=== PATIENT | female | born 1960 | race Caucasian/White ===

== ENCOUNTER 2016-11-21 09:33 | Emergency (ER) | payer BC ==
[2016-11-21 10:01] VITALS: BP 129/59
--- NOTE | 2016-11-21 10:20 | UC ---
Throat Pain/Nasal Keanu HPI - HPI Summary HPI Summary: 3 days of feeling run down some sore throat no fever---has been going on for 3 days - History of Current Complaint Chief Complaint: UCRespiratory Stated Complaint: THROAT COMPLAINT Time Seen by Provider: 11/21/16 09:45 Hx Obtained From: Patient Hx Last Menstrual Period: 10/30/14 ?: No Onset/Duration: Sudden Onset, Lasting Days - 3 Severity: Moderate Pain Intensity: 5 Pain Scale Used: 0-10 Numeric Cough: None Associated Signs & Symptoms: Positive: Nasal Discharge - Allergies/Home Medications Allergies/Adverse Reactions: Allergies Allergy/AdvReac Type Severity Reaction Status Date / Time Amoxicillin [From Augmentin] Allergy Intermediate Rash Verified 02/07/16 17:09 Clavulanic Acid Allergy Intermediate Rash Verified 02/07/16 17:09 [From Augmentin] PMH/Surg Hx/FS Hx/Imm Hx Previously Healthy: No Endocrine History Of: Reports: Thyroid Disease - multinodular goiter Denies: Diabetes, Hypothyroidism Cardiovascular History Of: Denies: Cardiac Disorders, Hypertension, Pacemaker/ICD Respiratory History Of: Denies: COPD, Asthma GI/ History Of: Denies: Ulcer, Renal Disease - Surgical History Surgical History: Yes Surgery Procedure, Year, and Place: partial thyroidectomy - - Family History Known Family History: Positive: Diabetes - mother, Other - osteoarthritis-- mother - Social History Occupation: Employed Full-time - teacher Lives: With Family Alcohol Use: Occasionally Substance Use Type: None Smoking Status (MU): Never Smoked Tobacco Review of Systems Constitutional: Fatigue Skin: Negative Eyes: Negative ENT: Sore Throat, Nasal Discharge Respiratory: Negative Cardiovascular: Negative Gastrointestinal: Negative Genitourinary: Negative Motor: Negative Neurovascular: Negative Musculoskeletal: Negative Neurological: Negative Psychological: Negative All Other Systems Reviewed And Are Negative: Yes Physical Exam Triage Information Reviewed: Yes Appearance: Well-Appearing, No Pain Distress, Well-Nourished Vital Signs: Initial Vital Signs Temp 98.8 F 11/21/16 09:39 Pulse 72 11/21/16 09:39 Resp 18 11/21/16 09:39 BP 129/59 11/21/16 09:39 Pulse Ox 99 11/21/16 09:39 Vital Signs Reviewed: Yes Eye Exam: Normal Eyes: Positive: Conjunctiva Clear ENT Exam: Normal ENT: Positive: Normal ENT inspection, Hearing grossly normal, Pharynx normal, Nasal drainage, TMs normal. Negative: Nasal congestion, Tonsillar swelling, Tonsillar exudate, Trismus, Muffled/hoarse voice Dental Exam: Normal Neck exam: Normal Neck: Positive: Supple, Nontender, Enlarged Nodes @ - slight fullness Respiratory Exam: Normal Respiratory: Positive: Chest non-tender, Lungs clear, Normal breath sounds, No respiratory distress, No accessory muscle use Cardiovascular Exam: Normal Cardiovascular: Positive: RRR, No Murmur, Pulses Normal, Brisk Capillary Refill Musculoskeletal Exam: Normal Musculoskeletal: Positive: Strength Intact, ROM Intact, No Edema Neurological Exam: Normal Neurological: Positive: Alert, Muscle Tone Normal Psychological Exam: Normal Skin Exam: Normal Diagnostics - Laboratory Diagnostic Studies Completed/Ordered: RST (-) Throat Pain/Nasal Course/Dx - Course Assessment/Plan: Zyrtec D flonase increase fluids, follow with pcp - Differential Dx/Diagnosis Differential Diagnosis/HQI/PQRI: Laryngitis, Otitis Media, Pharyngitis, Sinusitis, URI Provider Diagnoses: allergic rhinitis, pharyngitis Discharge - Discharge Plan Condition: Stable Disposition: HOME Prescriptions: Ciprofloxacin HCl [Cipro 500 MG TAB] 500 mg PO BID #14 tab Patient Education Materials: Pharyngitis (ED), Allergic Rhinitis (ED) Referrals: Mehreen Dominguez MD [Primary Care Provider] - 2 Weeks Additional Instructions: Eat yogurt every day while taking ciprofloxacin. Follow up with Dr. Dominguez in the next 1-2 weeks. Seek medical attention sooner for worse or new problems. Over the counter anti-histamine as directed on package as needed for inflammation. Throat culture in the lab.
--- NOTE | 2016-11-21 12:34 | UC ---
Progress - Progress Note Progress Note: pt wishing to see a MD as she feels her illness is bacterial and needs addition treatment---Dr. Reis in to see patient Gifty Husain UNIT AIDE-C
--- NOTE | 2016-11-21 12:55 | UC ---
Progress - Progress Note Progress Note: I evaluated Ms. Lyles, per her request. Reviewed H/P, reviewed examination. TM's cowan. L eac with moderate cerumen, still patent. Pt will use otc ear wax removal at her convenience. Post pharynx is erythematous, with red demarcating line. No sores. Uvula midline. No purulence. Tender glands. Trachea midline. No stridor. Neck supple, but feels full sensation. BS equal, mild course (denies hx wheezing, but + recent "pneumonia," per hpi.) RRR w/o M, correlates with radial pulse. Sitting up, no c/o abd pain. Denies rash. RST neg. Will obtain full throat cx. D/w pt, the entire etiology (likely multifactoral) is as yet unclear. She is interested in starting ciprofloxacin, but will wait until full cx to gather more information. Rx cipro x 7 days e-scribed. Ms. Lyles is encouraged to f/u with pcp, will call for appt in 1-2 weeks. Ms. Lyles was given the opportunity to ask several insightful questions, to which I answered to the best of my ability.
== END 2016-11-21 11:35 | disposition home or self-care (01) ==
LOC: UCEAST 09:33
DX: J30.9 Allergic rhinitis, unspecified (principal); J02.9 Acute pharyngitis, unspecified; Z88.1 Allergy status to other antibiotic agents; E07.9 Disorder of thyroid, unspecified; E89.0 Postprocedural hypothyroidism
CPT/HCPCS: 87070; 87651; 99212; G0463

== ENCOUNTER 2017-07-15 14:41 | Emergency (ER) | payer BC ==
--- NOTE | 2017-07-15 17:05 | UC ---
Throat Pain/Nasal Keanu HPI - HPI Summary HPI Summary: 56 y/o female presents to the urgent care c/o sore throat, body aches, MARTINEZ for the past 2 days. 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 PT has taken tylenol PO to alleviate symptoms. She also has mild nasal congestion. Pt denies fever, SOB, cough, chest pain, N/V/D. - History of Current Complaint Chief Complaint: UCRespiratory Stated Complaint: SORE THROAT Time Seen by Provider: 07/15/17 16:55 Hx Obtained From: Patient Hx Last Menstrual Period: 10/30/14 ?: No - Pt is menopausal Onset/Duration: Gradual Onset, Lasting Days - 2 days, Still Present Severity: Mild Pain Intensity: 4 Pain Scale Used: 0-10 Numeric Cough: None Associated Signs & Symptoms: Positive: Dysphagia, Nasal Discharge. Negative: Hoarseness, Fever - Epiglottits Risk Factors Epiglottis Risk Factors: Negative - Allergies/Home Medications Allergies/Adverse Reactions: Allergies Allergy/AdvReac Type Severity Reaction Status Date / Time Amoxicillin [From Augmentin] Allergy Intermediate Rash Verified 07/15/17 15:40 Clavulanic Acid Allergy Intermediate Rash Verified 07/15/17 15:40 [From Augmentin] PMH/Surg Hx/FS Hx/Imm Hx Previously Healthy: Yes Endocrine History: Hypothyroidism - Surgical History Surgical History: Yes Surgery Procedure, Year, and Place: partial thyroidectomy - - Family History Known Family History: Positive: Hypertension, Diabetes - mother Family History: osteoartritis - Social History Occupation: Employed Full-time Lives: With Family Alcohol Use: Occasionally Substance Use Type: None Smoking Status (MU): Never Smoked Tobacco Review of Systems Constitutional: Negative Skin: Negative Eyes: Negative ENT: Sore Throat, Nasal Discharge Respiratory: Negative Cardiovascular: Negative Gastrointestinal: Negative Genitourinary: Negative Motor: Negative Neurovascular: Negative Musculoskeletal: Negative Neurological: Negative Psychological: Negative Is Patient Immunocompromised?: No All Other Systems Reviewed And Are Negative: Yes Physical Exam Triage Information Reviewed: Yes Vital Signs: Initial Vital Signs Temp 97.7 F 07/15/17 15:35 Pulse 67 07/15/17 15:35 Resp 18 07/15/17 15:35 BP 123/62 07/15/17 15:35 Pulse Ox 100 07/15/17 15:35 - Additional Comments VITAL SIGNS: Reviewed. GENERAL: Patient is a well developed and nourished female who is sitting comfortable in the examining table. Patient is not in any acute respiratory distress. HEAD AND FACE: No signs of trauma. No ecchymosis, hematomas or skull depressions. No sinus tenderness. EYES: PERRLA, EOMI x 2, No injected conjunctiva, no nystagmus. No photophobia. EARS: Hearing grossly intact. Ear canals and tympanic membranes are within normal limits. MOUTH: Positive pharynx with erythema, no exudates, mild palatal petechiae. B/L tonsillar enlargement with no exudate. Uvula in midline. NECK: Supple, trachea is midline, Positive anterior cervical lymphadenopathy, no JVD, no carotid bruit, no c-spine tenderness, neck with full ROM. No meningeal signs, no Kernig's or brudzinskis signs. CHEST: Symmetric, no tenderness at palpation LUNGS: Clear to auscultation bilaterally. No wheezing or crackles. CVS: Regular rate and rhythm, S1 and S2 present, no murmurs or gallops appreciated. ABDOMEN: Soft, non-tender. No signs of distention. No rebound no guarding, and no masses palpated. Bowel sounds are normal. EXTREMITIES: FROM in all major joints, no edema, no cyanosis or clubbing. NEURO: Alert and oriented x 3. No acut Throat Pain/Nasal Course/Dx - Course Course Of Treatment: 56 y/o female presents to the urgent care c/o sore throat, body aches, MARTINEZ for the past 2 days. 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 PT has taken tylenol PO to alleviate symptoms. She also has mild nasal congestion. Pt denies fever, SOB, cough, chest pain, N/V/D. Hx obtained. Rapid strep ordered, result: negative. Influenza A&B: negative. Viral pharyngitis.Pt Rx ibuprofen PO to alleviates symptoms of pain and swelling. Advised on hand washing to avoid spreading. Pt advised to rest, eat well and avoid strenuous exercise. If symptoms do not improve or worsen advised to return to the urgent care or f/u with her PCP for further evaluation and treatment. Pt understood and agreed with plan of care - Differential Dx/Diagnosis Differential Diagnosis/HQI/PQRI: Influenza, Laryngitis, Mononucleosis, Otitis Media, Pharyngitis, Sinusitis, Tonsillitis, URI Provider Diagnoses: 1-Viral pharyngitis Discharge - Discharge Plan Condition: Stable Disposition: HOME Patient Education Materials: Pharyngitis (ED) Referrals: Mehreen Dominguez MD [Primary Care Provider] - If Needed Additional Instructions: 1-Please take OTC ibuprofen PO q6-8hrs prn as instructed after meals to alleviate pain and swelling. Increase fluid intake, eat well, rest and avoid strenuous exercise 2If symptoms do not improve or worsen please return to the urgent care or f/u with your PCP for further evaluation and treatment.
[2017-07-15 19:09] VITALS: BP 131/78
== END 2017-07-15 17:50 | disposition home or self-care (01) ==
LOC: UCEAST 14:41
DX: J02.9 Acute pharyngitis, unspecified (principal); E03.9 Hypothyroidism, unspecified; Z88.0 Allergy status to penicillin
CPT/HCPCS: 87502; 87651; 99212; G0463

== ENCOUNTER 2017-07-16 21:49 | Emergency (ER) | payer BC ==
--- NOTE | 2017-07-16 21:56 | UC ---
Throat Pain/Nasal Keanu HPI - HPI Summary HPI Summary: 56 YEAR OLD FEMALE PRESENTS WITH COMPLAINS OF SORE THROAT. SHE WAS SEEN YESTERDAY AND HAD A NEGATIVE FLU/STREP ASSAY. - History of Current Complaint Stated Complaint: SORE THROAT Time Seen by Provider: 07/16/17 21:55 Hx Obtained From: Patient Hx Last Menstrual Period: 10/30/14 Onset/Duration: Lasting Days Severity: Moderate Pain Scale Used: 0-10 Numeric - 7 Cough: Nonproductive Associated Signs & Symptoms: Positive: Negative - Allergies/Home Medications Allergies/Adverse Reactions: Allergies Allergy/AdvReac Type Severity Reaction Status Date / Time Amoxicillin [From Augmentin] Allergy Intermediate Rash Verified 07/15/17 15:40 Clavulanic Acid Allergy Intermediate Rash Verified 07/15/17 15:40 [From Augmentin] PMH/Surg Hx/FS Hx/Imm Hx Previously Healthy: Yes - Surgical History Surgical History: Yes Surgery Procedure, Year, and Place: partial thyroidectomy - - Family History Known Family History: Positive: Diabetes - mother, Other - osteoarthritis-- mother - Social History Alcohol Use: Occasionally Substance Use Type: None Smoking Status (MU): Never Smoked Tobacco Review of Systems Constitutional: Negative Skin: Negative Eyes: Negative ENT: Negative Respiratory: Negative Cardiovascular: Negative Gastrointestinal: Negative Genitourinary: Negative Motor: Negative Neurovascular: Negative Musculoskeletal: Negative Neurological: Negative Psychological: Negative All Other Systems Reviewed And Are Negative: Yes Physical Exam Triage Information Reviewed: Yes Vital Signs Reviewed: Yes Eye Exam: Normal ENT: Positive: Pharyngeal erythema, Nasal drainage, Uvula midline Dental Exam: Normal Neck exam: Normal Neck: Positive: 1 Respiratory Exam: Normal Cardiovascular Exam: Normal Abdominal Exam: Normal Musculoskeletal Exam: Normal Neurological Exam: Normal Psychological Exam: Normal Skin Exam: Normal Throat Pain/Nasal Course/Dx - Course Course Of Treatment: (-) STREP/FLU 07/16/17, THROAT CX WAS DONE 07/16/17, F/U ER IS WORSENING THROAT SWELLING OR TROUBLE BREATHING. - Differential Dx/Diagnosis Provider Diagnoses: PHARYNGITIS. UVULITIS Discharge - Discharge Plan Condition: Stable Disposition: HOME Prescriptions: Azithromyxin STEVE (NF) [Z-Steve (Zithromax) 250 mg tabs #6] 2 tab PO .TODAY, THEN 1 DAILY #6 tab LoraTADine TAB(NF) [Claritin 10 MG TAB(NF)] 10 mg PO DAILY #30 tab Magic M W2 Mina/Maal/Nyst/Lido* 5 ml SWISH SPIT QID PRN #120 ml PRN Reason: Pain Patient Education Materials: Pharyngitis (ED) Referrals: Mehreen Dominguez MD [Primary Care Provider] - Additional Instructions: F/U ER IS SWELLING WORSENS OR TROUBLE BREATHING.
[2017-07-16 21:57] VITALS: BP 146/50
[2017-07-16] MEDS ORDERED: Azithromycin TAB* 250 MG PO ONE (22:04)
[2017-07-16] MEDS ORDERED: Lidocaine 2% VISCOUS* 15 ML UDC PO ONE (22:04)
[2017-07-16] MEDS ORDERED: LoraTADine TAB(NF) 10 MG TAB (AUTOSUB to CETIRIZINE) PO ONE (22:05)
== END 2017-07-16 22:56 | disposition home or self-care (01) ==
LOC: UCEAST 21:49
DX: J02.9 Acute pharyngitis, unspecified (principal); K12.2 Cellulitis and abscess of mouth
CPT/HCPCS: 87070; 87651; 99212; A9270-GY; G0463

== ENCOUNTER 2019-01-13 19:51 | Emergency (ER) | payer BC ==
--- NOTE | 2019-01-13 20:07 | ED ---
Lower Extremity - HPI Summary HPI Summary: This is a previous a well 58-year-old woman who was walking in her home and suddenly lost the heel on of her shoes on the right foot which caused her to suffer an inversion injury at the foot and ankle. She has been able to weight- bear, though it is quite limited; chest wall on her heel. She has experienced some swelling over the proximal fifth metatarsal. There are no other injuries. - History of Current Complaint Chief Complaint: EDExtremityLower Stated Complaint: RIGHT FOOT INJURY PER PT Time Seen by Provider: 01/13/19 19:58 Hx Last Menstrual Period: 10/30/14 Pain Intensity: 5 - Allergies/Home Medications Allergies/Adverse Reactions: Allergies Allergy/AdvReac Type Severity Reaction Status Date / Time MS Amoxicillin Allergy Intermediate Rash Verified 07/15/17 15:40 [From Augmentin] MS Clavulanic Acid Allergy Intermediate Rash Verified 07/15/17 15:40 [From Augmentin] PMH/Surg Hx/FS Hx/Imm Hx Endocrine/Hematology History: Reports: Hx Thyroid Disease - multinodular goiter Denies: Hx Diabetes, Hx Anemia Cardiovascular History: Denies: Hx Hypertension, Hx Pacemaker/ICD Respiratory History: Denies: Hx Asthma, Hx Chronic Obstructive Pulmonary Disease (COPD) GI History: Denies: Hx Jaundice, Hx Ulcer History: Denies: Hx Renal Disease Sensory History: Denies: Hx Hearing Aid Psychiatric History: Denies: Hx Panic Disorder - Surgical History Surgery Procedure, Year, and Place: partial thyroidectomy - Infectious Disease History: No Infectious Disease History: Denies: Hx Clostridium Difficile, Hx Hepatitis, Hx Human Immunodeficiency Virus (HIV), Hx of Known/Suspected MRSA, Hx Shingles, Hx Tuberculosis, Hx Known/ Suspected VRE, Hx Known/Suspected VRSA, History Other Infectious Disease, Traveled Outside the [place] in Last 30 Days - Family History Known Family History: Positive: Diabetes - mother, Other - osteoarthritis-- mother - Social History Alcohol Use: Occasionally Substance Use Type: Reports: None Smoking Status (MU): Never Smoked Tobacco Review of Systems Constitutional: Negative Negative: Bruising All Other Systems Reviewed And Are Negative: No Physical Exam - Summary Physical Exam Summary: General: This is a well-developed, well- nourished middle-aged woman lying on the stretcher in no apparent distress. The patient does not appear ill or toxic. Neck: No obvious swellings. Lungs: There are no signs of respiratory distress. Coronary: Peripheral perfusion is good. Abdomen: The abdomen appears normal and is nondistended. Genitourinary: Deferred Back: Good range of motion is observed. Extremities: Examination is limited to the right lower extremity. The knee appears uninjured. There is no calf tenderness or tenderness along the leg. The Achilles tendon is intact by palpation as well as a normal Ribeiro's squeeze test. There is no tenderness over either malleolus nor any swelling about the ankle. There is marked swelling over the proximal fifth metatarsal with associated point tenderness in this area. There is no deformity. There is no further injury to the foot. Neurologic: The patient is awake and alert, speech is fluent and conversation is appropriate. Psychiatric: The patients affect is felt to be normal and appropriate. There is no sign of any hallucinations or delusions, or any other signs of psychosis. Vital Signs On Initial Exam: Initial Vitals Temp Pulse Resp BP Pulse Ox 36.6 C 74 18 138/72 100 01/13/19 19:54 01/13/19 19:54 01/13/19 19:54 01/13/19 19:54 01/13/19 19:54 Diagnostics - Vital Signs Vital Signs Temp Pulse Resp BP Pulse Ox 01/13/19 19:54 36.6 C 74 18 138/72 100 - Laboratory Lab Statement: Any lab studies that have been ordered have been reviewed, and results considered in the medical decision making process. Lower Extremity Course/Dx - Diagnoses Provider Diagnoses: Fracture of fifth metatarsal bone of right foot Discharge - Sign-Out/Discharge Documenting (check all that apply): Patient Departure Patient Received Moderate/Deep Sedation with Procedure: No - Discharge Plan Condition: Good Disposition: HOME Patient Education Materials: Foot Fracture in Adults (ED) Forms: *Work Release Referrals: Mehreen Dominguez MD [Primary Care Provider] - Additional Instructions: On my reading of your xray, coupled with your physical exam, I think you have a fracture of the 5th metatarsal bone. These tend to be quite stable and heal well , but that takes 4-6 weeks. I would recommend a followup visit with Dr. Means in about a weeks time. He will check on the initial healing and may need to repeat your x rays. In the interim ice and elevation will be helpful to keep the pain and swelling down. - Billing Disposition and Condition Condition: GOOD Disposition: Home - Attestation Statements Document Initiated by Scribe: No
[2019-01-13 20:37] VITALS: BP 130/76
== END 2019-01-13 20:35 | disposition home or self-care (01) ==
LOC: ED 19:51
DX: S92.354A Nondisplaced fracture of fifth metatarsal bone, right foot, initial encounter for closed fracture (principal); X50.0XXA Overexertion from strenuous movement or load, initial encounter; Y92.9 Unspecified place or not applicable; E04.2 Nontoxic multinodular goiter; Z88.0 Allergy status to penicillin
CPT/HCPCS: 99281